=== PATIENT | female | born 1995 | race Caucasian/White ===

== ENCOUNTER 2021-08-29 22:49 | Emergency (ER) | payer SELFPAY ==
[2021-08-30] MEDS ORDERED: Ondansetron 4 MG Tab.DIS PO ONE (00:16)
== END 2021-08-30 00:37 | disposition home or self-care (01) ==
LOC: MW.ED 22:49
DX: O20.9 Hemorrhage in early pregnancy, unspecified (principal); Z91.013 Allergy to seafood; Z88.0 Allergy status to penicillin; Z3A.08 8 weeks gestation of pregnancy
CPT/HCPCS: 76801; 99284; A9270